=== PATIENT | female | born 1945 | race Caucasian/White ===

== ENCOUNTER 2025-05-11 10:43 | Outpatient (CLI) | payer MEDICARE, SELFPAY ==
--- NOTE | ~2025-05-11 | XR_ITS ---
Right Hand Technique: PA and lateral views were obtained. Clinical History: Rheumatoid arthritis Findings: No acute fracture or dislocation is seen. Osseous alignment is anatomic. There is moderate degenerative change of the DIP joints, worst at the fourth DIP joint. Soft tissues are unremarkable. Impression: Degenerative change of the DIP joints, worst at the fourth DIP joint. Reviewed, dictated and finalized at location . Impression: Degenerative change of the DIP joints, worst at the fourth DIP joint.
--- NOTE | ~2025-05-11 | XR_ITS ---
Left Hand Technique: PA and lateral views were obtained. Clinical History: Rheumatoid arthritis Findings: No acute fracture or dislocation is seen. Osseous alignment is anatomic. There is moderate degenerative change of the DIP joints, worst at the second and fourth DIP joints. Soft tissues are un remarkable. Impression: Degenerative change of the DIP joints, as detailed above. Reviewed, dictated and finalized at location . Impression: Degenerative change of the DIP joints, as detailed above.
--- NOTE | ~2025-05-11 | XR_ITS ---
Right foot Technique: AP and lateral views were obtained. Clinical History: Rheumatoid arthritis Findings: No acute fracture or dislocation is seen. There is moderate degenerative change at the firs t TMT joint. Soft tissues are unremarkable. Impression: Degenerative change at the first TMT joint. Reviewed, dictated and finalized at location . Impression: Degenerative change at the first TMT joint.
--- NOTE | ~2025-05-11 | XR_ITS ---
AP and oblique views of the SI joints CLINICAL HISTORY: Rheumatoid arthritis FINDINGS: There is mild degenerative change of the SI joints. No erosive change or sclerosis. Bilater al hip arthroplasties are present. Soft tissues are unremarkable. No fracture. IMPRESSION: Mild degenerative change of both SI joints. Bilateral hip arthroplasty. Reviewed, dictated and finalized at location .
--- NOTE | ~2025-05-11 | XR_ITS ---
Left foot Technique: AP and lateral views were obtained. Clinical History: Rheumatoid arthritis Findings: No acute fracture or dislocation is seen. Osseous alignment is anatomic. Joint spaces are p reserved without erosive or degenerative change. Soft tissues are unremarkable. Impression: Unremarkable left foot radiographs. Reviewed, dictated and finalized at location . Impression: Unremarkable left foot radiographs.
--- NOTE | ~2025-05-11 | XR_ITS ---
Cervical Spine: AP, lateral, open-mouth views Clinical History: Pain Findings: The normal lordotic curve is maintained. No fracture identified. There is 3 mm anterolisthe sis of C3 over C4. There is 4 mm anterolisthesis of C4-C5. There is advanced degenerative disc narrow ing at C5-C6 and C6-C7. There is severe facet arthropathy throughout the cervical spine.. Pre-vertebr al soft tissues are unremarkable. Impression: Severe degenerative spondylosis, as detailed above. Reviewed, dictated and finalized at location M. Impression: Severe degenerative spondylosis, as detailed above.
--- NOTE | ~2025-05-11 | XR_ITS ---
Lumbosacral Spine: AP and lateral views Clinical History: Pain Findings: There is dextroscoliosis. There is severe degenerative disc narrowing throughout the lumbar spine. There is severe facet arthropathy throughout the lumbar spine. No fracture or subluxation nasim dent. The sacroiliac joints are normally outlined. Impression: Severe degenerative spondylosis throughout the lumbar spine, with associated extra scoliosis. Reviewed, dictated and finalized at location M. Impression: Severe degenerative spondylosis throughout the lumbar spine, with associated ex tra scoliosis.
--- OUTSIDE RECORDS SUMMARY | 2025-05-11 11:03 | XMS_ITS | Data Portability ---
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 Name Role Phone [facility] OTHER Assessment Encounter Date Assessment Date Assessment LastModified by Organization Details LastModified Time 01/26/2025 01/26/2025 will see her back in one month, labs today to decide if needs electrolyte replacement weight is down, legs look improving [email or web address] Not available 01/26/2025 17:06:32 Plan of Treatment Reminders Order Date Submit Date Provider Last Modified By Organization Details Last Modified Time Details Appointments Any 15 2024 01:15P Fabiola Dow MD Not available Not available Not available Lab BMP, serum or plasma 2024 025 [employer] [facility], [address], [place], [address], 04/09/2025 18:41:46 BMP, serum or plasma 2024 025 [employer] [facility], [address] [place], [address], 03/12/2025 13:53:07 DAVID + rf (antinucl ear antibodie s + rheumatoi d factor), quantitat asia, serum 2024 025 [email or web address] [facility], [address], [place], [address], 03/05/2025 09:19:21 C-reactiv e protein, quantitat asia, serum or plasma 2024 025 [email or web address] [facility], [address], [place], [address], 03/05/2025 09:19:21 ESR (erythroc yte sedimenta tion rate), blood 2024 025 [email or web address], [address], [address], [place], [address], 03/05/2025 09:19:21 CBC w/ auto diff 2024 025 [facility], [address], [address], [place], [address], 03/05/2025 09:19:21 CMP, serum or plasma 2024 025 [facility], [address], [address], [place], [address], 03/05/2025 09:19:21 uric acid, serum or plasma 2024 025 [facility], [address], [address], [place], [address], 02/25/2025 14:27:24 BMP, serum or plasma 2024 025 [facility], [address], [address], [place], [address], 03/05/2025 09:19:21 CBC 2024 025 [employer] [facility], [address], [address], [place], [address], 02/24/2025 14:09:09 BMP, serum or plasma 2024 025 [employer] [facility], [address], [address], [place], [address], 01/27/2025 18:28:06 Referral cardiolog ist referral - Failed attempt with medicatio n. Please call patient to schedule an appointme nt. Thank you. 2024 025 FIDEL Amaya MD, 0 [facility], [address], [place], [address], 03/10/2025 11:37:22 Procedures None recorded. Surgeries None recorded. Imaging None recorded. Medication Orders hydralazi ne 25 mg tablet 2024 025 [facility]/Pharmacy #[id number], [address], [place], [address], 05/06/2025 14:52:42 hydralazi ne 25 mg tablet 2024 [id number], [address], [place], [address], 05/03/2025 09:49:06 diclofena c 3 % topical gel 2024 025 [email or web address] [facility]/Pharmacy #[id number], [address], [place], [address], 02/23/2025 14:58:22 furosemid e 20 mg tablet 2024 025 [email or web address] [facility]/Pharmacy #[id number], [address], [place], [address], 03/15/2025 10:49:46 cephalexi n 500 mg capsule 2024 025 [email or web address] [facility]/Pharmacy #[id number], [address], [place], [address], 02/25/2025 14:45:35 olmesarta n 40 mg tablet 2024 025 [email or web address] [facility]/Pharmacy #[id number], [address], [place], [address], 01/26/2025 17:15:25 Patient TargetsNo targets recorded. Patient Instructions Encounter Date Encounter Id Patient Instructions Last Modified By Organization Details Last Modified Time 02/23/2025 [id number] Discussed medication compliance with patient. Discussed watching salt intake and processed foods. Discussed elevation of legs and use of compression socks. Not available 02/23/2025 16:19:15 03/09/2025 [id number] BMP checked at visit. Avoid salty foods, frozen or packaged foods. Continue to elevate legs. Will notify of BNP results and send prescription after completed. [email or web address] Not available 03/09/2025 16:02:47 Reason for Referral [employer] W[employer] Referral for Ed brenda Failed attempt with medication. Please call patient to schedule an appointment. Thank you. Referring Physician: Peyton oLmeli, Internal Medicine, Encounter Date: 03/09/2025 Results Created Date Observation Date Name Description Value Unit Range Abnormal Flag Note LastModifiedBy Organization Detail LastModifiedTime Result Notes None recorded. 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 Not Available [employer] 3 16:40:44 Eruption 624927850 Completed 202102/25/2023 FEI Wilkins, [place] [employer] [facility] 3 14:10:13 Vitamin D deficienc y 66874448 Active 2021 Not Available [employer] 3 16:40:44 Neuropath y 362277179 Active 2021 Not Available [employer] 3 16:40:44 Osteoarth ritis 101035747 Active 2021 Not Available [employer] 3 16:40:44 Hyperlipi demia 91377691 Active 2021 Not Available [employer] 3 16:40:44 Essential hypertens ion 85396126 Active 2021 Not Available [employer] 3 16:40:44 Osteoporo sis 73697386 Active 2021 Not Available [facility] 3 16:40:44 Overactiv e urinary bladder 406282595 Active 2021 Not Available [facility] 3 16:40:44 Acute sinusitis 88326668 Completed 202207/12/2023 Carol Ann dasilva, RMA null, [place] [facility] 3 07:34:42 Allergic rhinitis 32519047 Active 2022 Carol Ann Huntley n, RMA null, [place] [facility] 5 07:43:30 Pain of bilateral hands 70067539268 634646 Completed 202401/19/2025 Carol Ann dasilva, RMA null, [place] [facility] 5 07:52:02 Pain of left hand 91893856064 9103 Completed 202401/19/2025 Carol Ann dasilva, RMA null, [place] [facility] [place] [facility] 5 07:52:01 Urinary incontine nce 005888489 Active 2024 Carol Ann dasilva, RMA null, [place] [facility] 5 07:51:57 Pain of multiple joints 68054182 Active 2024 SHRUTHI Florian [address], [address], [place], [address] , [facility] 5 13:59:19 Bilateral pain of joint of hands 77358862683 038677 Active 2024 SHRUTHI Florian [address], [address], [place], [address] , [facility] 5 15:10:07 Edema 375843165 Active 2024 PJ Florian-C [address], [address], [place], [address] , [facility] 5 15:05:14 Laborator y test result abnormal 399790586 Active 2024 Niyah Reeder LPN null, [place] [employer] [facility] [employer] 5 15:36:06 Arthritis 7591105 Active 2024 Gumaro Dow MD [address], [facility] [address], [place], [address] , [place] [employer] [facility] [employer] 5 14:49:03 Problem Notes None recorded. Procedures Surgical History Date Name Laterality Status Provider Name and Address Organization Details Recorded Time Medicare Wellness CPT Code, Initial completed Alice Cui RN [facility] [employer] 04/09/2024 14:31:07 Imaging Results None recorded. Procedure Notes None recorded. Medical Equipment None Reported. Medications Name Sig Start Date Stop Date Status Note LastModified by Organization Details LastModified Time amoxicill in 500 mg capsule TAKE 1 CAPSULE BY MOUTH THREE TIMES A DAY FOR 7 DAYS 12/10 completed Not Available Not Available Not Available furosemid e 40 mg tablet TAKE 1 TABLET BY MOUTH TWICE A DAY FOR 14 DAYS 03/15 completed Not Available Not Available Not Available atorvasta tin 40 mg tablet TAKE 1 TABLET BY MOUTH EVERY DAY active Not Available Not Available No t Available diclofena c 3 % topical gel APPLY TOPICALL Y TO PAINFUL HAND AND BACK AREAS 2 TIMES PER DAY active Not Available Not Available No t Available carvedilo l 25 mg tablet TAKE 1 TABLET BY MOUTH TWICE A DAY 2024 active Not Available Not Available Not Avai lable gabapenti n 600 mg tablet 06/20 completed Not Available Not Available Not Available atorvasta tin 10 mg tablet 06/20 completed Not Available Not Available Not Available atenolol 100 mg tablet Take 1 tablet every day by oral route. 02/23 completed severe swelling Not Available Not Available Not Available tolterodi ne ER 4 mg capsule,e xtended release 24 hr TAKE 1 CAPSULE BY MOUTH EVERY DAY 2024 active Not Available Not Available Not Avai lable meloxicam 15 mg tablet Take 1 tablet every day by oral route. 02/23 completed patient stopped and no longer wants to continue that Not Available Not Available Not Available alendrona te 70 mg tablet TAKE 1 TABLET BY MOUTH ONE TIME PER WEEK 2024 active Not Available Not Available Not Avai lable hydralazi ne 25 mg tablet Take 1 tablet twice a day by oral route. 2024 active Not Available Not Available Not Avai lable nifedipin e ER 30 mg tablet,ex tended release Take 1 tablet every day by oral route. 02/23 completed Not Available Not Available Not Available acetamino phen 300 mg-codein e 30 mg tablet TAKE 1 TABLET BY MOUTH 4 TIMES A DAY NEEDED FOR PAIN 06/20 completed Not Available Not Available Not Available leflunomi de 20 mg tablet TAKE 1 TABLET BY MOUTH EVERY DAY active Not Available Not Available No t Available triamcino lone acetonide 0.1 % topical cream APPLY TO AFFECTED AREA TWICE A DAY 06/20 completed Not Available Not Available Not Available meloxicam 7.5 mg tablet Take 1 tablet every day by oral route. 12/09 completed Not Available Not Available Not Available amitripty line 25 mg tablet 06/20 completed Not Available Not Available Not Available gabapenti n 800 mg tablet TAKE 1 TABLET BY MOUTH THREE TIMES A DAY active Not Available Not Available No t Available furosemid e 80 mg tablet TAKE 1 TABLET BY MOUTH EVERY DAY 2024 active Not Available Not Available Not Avai lable cephalexi n 500 mg capsule TAKE 1 CAPSULE BY MOUTH THREE TIMES A DAY FOR 10 DAYS 02/25 completed Not Available Not Available Not Available hydrocodo ne 7.5 mg-acetam inophen 750 mg tablet 06/20 completed Not Available Not Available Not Available hydroxyzi ne HCl 25 mg tablet 06/20 completed Not Available Not Available Not Available furosemid e 20 mg tablet TAKE 1 TABLET BY MOUTH EVERY DAY 03/15 completed Not Available Not Available Not Available lorazepam 1 mg tablet 06/20 completed Not Available Not Available Not Available hydroxych loroquine 200 mg tablet TAKE 2 TABLETS BY MOUTH EVERY DAY active Not Available Not Available No t Available hydroxyzi ne HCl 10 mg tablet TAKE 1 TABLET BY MOUTH THREE TIMES A DAY NEEDED 2024 active Not Available Not Available Not Avai lable fluticaso ne propionat e 50 mcg/actua tion nasal spray,caron pension SPRAY 1 SPRAY BY INTRANAS AL ROUTE EVERY DAY active Not Available Not Available No t Available atenolol 50 mg tablet TAKE 1 TABLET BY MOUTH EVERY DAY active disconti nued Not Available Not Available Not Available olmesarta n 40 mg tablet TAKE 1 TABLET BY MOUTH EVERY DAY active Not Available Not Available No t Available olmesarta n 40 mg-hydroc hlorothia zide 25 mg tablet TAKE 1 TABLET EVERY DAY BY ORAL ROUTE IN THE MORNING. 04/08 completed Not Available Not Available Not Available amlodipin e 5 mg-benaze pril 40 mg capsule 06/20 completed Not Available Not Available Not Available amlodipin e 10 mg-benaze pril 40 mg capsule TAKE 1 CAPSULE BY MOUTH EVERY DAY 07/29 completed Not Available Not Available Not Available Toviaz 8 mg tablet,ex tended release 06/20 completed Not Available Not Available Not Available Myrbetriq 25 mg tablet,ex tended release 06/20 completed Not Available Not Available Not Available Vitals Date Recorded Body height Body mass index (BMI) Body weight Body temperature Heart rate Oxygen saturation Oxygen saturation in Arterial blood by Pulse oximetry Systolic blood pressure Diastolic blood pressure Provider Name and Address Organization Details Last Updated DateTime 5 170.18 cm 26.5 kg/m2 77182.1 1 g 97.6 [degF] 72 /min 98 % 98 % 136 mm[Hg] 86 mm[Hg] Kennedi Cabezas [facility] [employer] [facility] [employer] [facility] 5 16:44:19 Date Recorded Body height Body mass index (BMI) Body weight Body temperature Oxygen saturation Oxygen saturation in Arterial blood by Pulse oximetry Heart rate Systolic blood pressure Diastolic blood pressure Provider Name and Address Organization Details Last Updated DateTime 5 170.18 cm 26.5 kg/m2 29919.1 1 g 97.5 [degF] 97 % 97 % 62 /min 140 mm[Hg] 80 mm[Hg] Kennedi tomas [employer] [facility] [employer] [facility] 5 14:21:34 Date Recorded Body height Body mass index (BMI) Body weight Body temperature Heart rate Oxygen saturation Oxygen saturation in Arterial blood by Pulse oximetry Systolic blood pressure Diastolic blood pressure Provider Name and Address Organization Details Last Updated DateTime 5 170.18 cm 27.4 kg/m2 48201.1 3 g 97 [degF] 72 /min 96 % 96 % 130 mm[Hg] 70 mm[Hg] Carol Ann winters [employer] [facility] 5 14:21:27 Date Recorded Body height Body mass index (BMI) Body weight Body temperature Heart rate Oxygen saturation Oxygen saturation in Arterial blood by Pulse oximetry Systolic blood pressure Diastolic blood pressure Provider Name and Address Organization Details Last Updated DateTime 5 170.18 cm 23.3 kg/m2 54825.2 6 g 97.5 [degF] 71 /min 97 % 97 % 174 mm[Hg] 80 mm[Hg] Carol Ann winters [employer] 5 14:22:30 Date Recorded Body height Body mass index (BMI) Body weight Body temperature Heart rate Oxygen saturation Oxygen saturation in Arterial blood by Pulse oximetry Systolic blood pressure Diastolic blood pressure Provider Name and Address Organization Details Last Updated DateTime 5 170.18 cm 24.9 kg/m2 51253.1 9 g 97 [degF] 65 /min 96 % 96 % 144 mm[Hg] 70 mm[Hg] Carol Ann winters [employer] [facility] [employer] 5 14:21:07 Social History Question Answer Notes LastModified by Organization Details LastModified Time Tobacco Smoking Status Former Smoker Not Available [facility] 01/09/2023 13:49:43 Do You Have An Advance Directive? No [id number] Information not available 01/09/2023 Do You Wear A Helmet When Biking? No MIGRATION.[id number] Information not available 01/09/2023 Are You Blind Or Do You Have Difficulty Seeing? Yes Wears Glasses [id number].[id number] Information not available 01/09/2023 What Is Your Level Of Caffeine Consumption? Moderate [id number].[id number] Information not available 01/09/2023 In The 14 Days Before Symptom Onset, Have You Had Close Contact With A Laboratory-cox bransoni rmed COVID-19 While That Case Was Ill? No MIGRATION.0301 [id number] Information not available 01/09/2023 In The 14 Days Before Symptom Onset, Have You Had Close Contact With A Person Who Is Under Investigation For COVID-19 While That Person Was Ill? No MIGRATION.0301 [id number] Information not available 01/09/2023 Are You Deaf Or Do You Have Serious Difficulty Hearing? No MIGRATION.0301 [id number] Information not available 01/09/2023 What Type Of Diet Are You Following? REGULAR MIGRATION.0301 [id number] Information not available 01/09/2023 What Is The Highest Grade Or Level Of School You Have Completed Or The Highest Degree You Have Received? [id number] MIGRATION.030 [id number] Information not available 01/09/2023 Have There Been Any Changes To Your Family Or Social Situation? No MIGRATION.030 490873 Information not available 01/09/2023 What Is The Fluoride Status Of Your Home? Unknown [email or web address] Information not available 04/09/2024 When Did You Quit Smoking? 16+yearssincelastc igarette 1/2 PPD Quit In 2004 Information not available 05/06/2025 Are There Any Guns Present In Your Home? No MIGRATION.0301 [id number] Information not available 01/09/2023 Do You Use Insect Repellent Routinely? No MIGRATION.0301 [id number] Information not available 01/09/2023 Where Do You Live? SingleLevelHouse [email or web address] Information not available 04/09/2024 Are You Able To Care For Yourself? Yes [email or web address] Information not available 04/09/2024 Are You Blind Or Do Yo Have Difficulty Seeing? No Information not available 04/09/2024 Are You Deaf Or Do You Have Serious Difficulty Hearing? No [email or web address] Information not available 04/09/2024 Live Alone Of With Others? Alone [email or web address] Information not available 04/09/2024 What Was The Date Of Your Most Recent Tobacco Screening? 05/06/2025 Information not available 05/06/2025 Do You Have Any Pets? Yes [email or web address] Information not available 04/09/2024 What Is Your Relationship Status? MIGRATION.0301 [id number] Information not available 01/09/2023 Do You Use Your Seat Belt Or Car Seat Routinely? Yes MIGRATION.0301 [id number] Information not available 01/09/2023 Do You Have Smoke And Carbon Monoxide Detectors In Your Home? Yes MIGRATION.0301 754214 Information not available 01/09/2023 Are You Passively Exposed To Smoke? No MIGRATION.0301 717475 Information not available 01/09/2023 Are There Any Smokers In Your House? No MIGRATION.0301 175822 Information not available 01/09/2023 Do You Use Sunscreen Routinely? No MIGRATION.0301 593579 Information not available 01/09/2023 Has Tobacco Cessation Counseling Been Provided? No MIGRATION.0301 [id number] Information not available 01/09/2023 Have You Recently Traveled Abroad? No MIGRATION.0301 751739 Information not available 01/09/2023 Do You Have Difficulty Walking Or Climbing Stairs? No MIGRATION.0301 863380 Information not available 01/09/2023 Do You Have Any Dietary Restrictions? No MIGRATION.0301 540719 Information not available 01/09/2023 Sex: Unknown Functional Status Question Answer Note LastModified by [employer] ion Details LastModified Time Do you use any illicit or recreational drugs? No MIGRATION.[id number] 026 Information not available 01/09/2023 Do you or have you ever used any other forms of tobacco or nicotine? No MIGRATION.6299874 026 Information not available 01/09/2023 What is your level of alcohol consumption? None MIGRATION.8976683 026 Information not available 01/09/2023 Do you have transportation difficulties? No MIGRATION.5778351 026 Information not available 01/09/2023 Are you able to walk? YESWOREST MIGRATION.9949256 026 Information not available 01/09/2023 Do you have difficulty doing errands alone? No MIGRATION.5936357 026 Information not available 01/09/2023 Are you able to care for yourself? Yes MIGRATION.6281518 026 Information not available 01/09/2023 Do you have difficulty dressing or bathing? No MIGRATION.1322176 026 Information not available 01/09/2023 What is your exercise level? None MIGRATION.3801339 026 Information not available 01/09/2023 Mental Status Question Answer Note LastModified by [employer] Details LastModified Time Do you feel stressed (tense, restless, nervous, or anxious, or unable to sleep at night)? [id number] MIGRATION.45065293 Information not available 01/09/2023 Do you have difficulty concentrating, remembering or making decisions? Yes MIGRATION.[id number] Information not available 01/09/2023 Family History Nothing Reported. Medical History No medical history recorded. Gynecological HistoryNo gynecological history recorded. Obstetrics History GPAL:G 0 P 0 0 0 0 Immunizations Vaccine Type Date Status Note Provider Nam e and Address Organization Details Recorded Time Influenza, high-dose, quadrivalent, PF 08/19/2023 completed Gumaro Dow MD [address], [address], [place], [address], [employer] 08/19/2023 15:01:24 Influenza, high-dose, trivalent, PF 08/10/2024 completed Gumaro Dow MD [address], [address], [place], [address], [employer] 08/10/2024 16:51:14 Past Encounters Encounter ID Performer Location Encounter Start Date Encounter Closed Date Diagnosis/Indication Diagnosis SNOMED-CT Code Diagnosis ICD10 Code Diagnosis Note [id number] Gumaro Dow MD [facility] [place] [place] Internal [address] [address] 06/20/2022 00:00:00 06/20/2022 14:40:12 [id number] Gumaro Dow MD [facility] [place] [place] Internal [address] [address] 10/22/2022 00:00:00 10/22/2022 14:24:52 [id number] Gumaro Dow MD [facility] [place] [place] Internal Med [id number] [place] [address] 02/25/2023 14:00:35 02/25/2023 14:21:14 Essential hypertension 46843231 I10 Under control Hyperlipidemia 32337778 E78.5 Labs good Overactive urinary bladder 915346806 N32.81 Meds help Neuropathy 543597028 G62 .9 Meds help Edema of l ower extremity 697797898 R60.0 Getting worse, could be amlodipine related, getting better Osteoarthritis 951712746 M19.90 OTC Osteoporosis 77512853 M8 1.0 On meds Vitamin D deficiency 347 74257 E55.9 on otc Adult heal th examination 494665133 Z00.00 colonoscop y- never, gets cologuard onlyMammo- 2Dex a-2C OVID-2 vaccines, 2 boostersFl [id number]- in the cdfcURX02- in the past [id number] Gumaro Dow MD [facility] [place] [place] Internal Med [address] [facility] [place] [address] 06/27/2023 14:03:16 06/27/2023 14:37:06 Essential hypertension 84684897 I10 change meds Hyperlipidemia 21014093 E78.5 Labs good Overactive urinary bladder 037408845 N32.81 Meds help Neuropathy 989441694 G62 .9 Meds help Edema of l ower extremity 463547341 R60.0 Getting worse, could be amlodipine related, getting better Osteoarthritis 876654387 M19.90 OTC Osteoporosis 69045170 M8 1.0 On meds Vitamin D deficiency 347 79720 E55.9 on otc Adult heal th examination 700595011 Z00.00 colonoscop y- never, gets cologuard onlyMammo- 2Dex a-2C OVID-2 vaccines, 2 boostersFl u-4196I32- in the frdqOUH27- in the past Screening mammography 24 189683 Z12.31 [id number] Gumaro Dow MD [facility] [place] [place] Internal Med [address] [facility] [place] [address] 07/29/2023 14:03:05 07/29/2023 14:27:42 Essential hypertension 52895284 I10 change med dose Edema of l ower extremity 376276250 R60.0 better after stoping amlodipine [id number] Gumaro Dow MD [facility] [place] [place] Internal Med [facility] [address] [facility] [place] [address] 08/19/2023 14:03:18 08/19/2023 15:09:03 Administration of influenza vaccine 99075231 Z23 Essential hypertension 37680267 I10 nifedipine 10 mg po x , bp came down to 104/56, looks like she is responding a lot better to calcium channel blockers, will start low dose nifedipine . [id number] Gumaro Dow MD [facility] [place] [place] Internal Med [address] [place] [address] 09/09/2023 14:28:19 09/09/2023 15:26:14 Essential hypertension 16989337 I10 UNDER CONTROL [id number] Gumaro Dow MD [facility] Internal Med [address] [facility] [place] [address] 12/10/2023 14:15:59 12/10/2023 14:56:09 Essential hypertension 58721061 I10 UNDER CONTROL Hyperlipidemia 94909921 E78.5 Labs needed Overactive urinary bladder 172439627 N32.81 Meds help Neuropathy 626975947 G62 .9 Meds help Edema of l ower extremity 032241681 R60.0 better after stoping amlodipine Osteoarthritis 651810407 M19.90 OTC Osteoporosis 34413864 M8 1.0 On meds Vitamin D deficiency 347 01182 E55.9 on otc Adult heal th examination [id number] Z00.00 colonoscop y- never, gets cologuard onlyMammo- 07/17/2023 Dexa-06/30 22COVID-2 vaccines, 2 boostersFl u-08/19/20 13M69-ke the woruDUV27- in the past Allergic rhinitis 187338 04 J30.9 advised to take hydroxizin e only as needed , will be filling 90 pills for 3 months, feeling tired [id number] Gumaro Dow MD [facility] [place] [place] Internal Med [address] [facility] [place] [address] 04/09/2024 14:01:56 04/09/2024 14:38:08 Essential hypertension 24949380 I10 under control Hyperlipidemia 94952149 E78.5 under control Overactive urinary bladder 454200497 N32.81 Meds help Neuropathy 346507482 G62 .9 Meds help Edema of l ower extremity 141829208 R60.0 better after stoping amlodipine Osteoarthritis 056715313 M19.90 OTC Osteoporosis 20044776 M8 1.0 On meds Vitamin D deficiency 347 98276 E55.9 on otc Adult heal th examination 718426903 Z00.00 Colonoscop y- never, gets cologuard onlyMammo- 07/17/2023 Dexa-06/30 22COVID-2 vaccines, 2 boostersFl u-08/19/20 40E62-pw the yjzzPQI16- in the past Allergic rhinitis 202604 04 J30.9 advised to take hydroxizin e only as needed , will be filling 90 pills for 3 months, Screening for disorder 776468795 Z13.9 [id number] Gumaro Dow MD [facility] [place] [place] Internal Med [facility] [address] [facility] [place] [address] 08/10/2024 15:10:53 08/10/2024 15:45:37 Essential hypertension 84675543 I10 was under control, home numbers are good, will bring her machine in aweek to get bp check Hyperlipidemia 66449234 E78.5 under control Overactive urinary bladder 910044756 N32.81 Meds help Neuropathy 826024083 G62 .9 Meds help Edema of l ower extremity 372283866 R60.0 getting better after stoping amlodipine Osteoarthritis 609642254 M19.90 OTC Osteoporosis 38311599 M8 1.0 On meds Vitamin D deficiency 347 62204 E55.9 on otc Adult heal th examination 765594876 Z00.00 Colonoscop y- never, gets cologuard onlyMammo- 07/17/2023 Dexa-06/30 22COVID-2 vaccines, 2 boostersFl u-08/19/20 97P22-pa the tubwSSV42- in the past Allergic rhinitis 821215 04 J30.9 advised to take hydroxyzin e only as needed , will be filling 90 pills for 3 months, Screening mammography 24 141971 Z12.31 Postmenopausal state 764 24291 Z78.0 Administra tion of influenza vaccine 40481107 Z23 [id number] Gumaro Dow MD [facility] [place] [place] Internal Med [address] [facility] [place] [address] 12/03/2024 11:02:32 12/03/2024 11:36:18 Essential hypertension 10989065 I10 home numbers are good, Hyperlipidemia 56978015 E78.5 under control Overactive urinary bladder 177661308 N32.81 Meds help Neuropathy 837712695 G62 .9 Meds help Edema of l ower extremity 555019498 R60.0 getting worse, avoid lasix, try compressio ns Osteoarthritis 415011629 M19.90 hands getting worse Osteoporosis 84571823 M8 1.0 On meds Vitamin D deficiency 347 50125 E55.9 on otc Adult heal th examination 101824336 Z00.00 Colonoscop y- never, gets cologuard onlyMammo- 07/17/2023 Dexa-06/30 22COVID-2 vaccines, 2 boostersFl u-08/19/204P13 -in the ugkeZBY40- in the past Allergic rhinitis 092377 04 J30.9 advised to take hydroxyzin e only as needed , will be filling 90 pills for 3 months, [id number] Gumaro Dow MD [facility] [place] [place] Internal Med [facility] [address] [facility] [place] [address] 01/11/2025 17:11:50 01/12/2025 14:02:49 Edema of lower extremity 227260979 R60.0 now with mild cellulitis needs lymphadema treatment and antibxshe is reluctant for PT for lymphadema treatmentw ill use lasix 20mg every morning and she is taking her losartan without the hctz, she says she has regular losartan without the hctzlabs next week and recheck of legs Pain of bi lateral hands [id number] 4795850 M79.641 M79.642 meloxicam in not helping, because of swelling i will ask her to try topical diclofenac and hopefully insurance will cover the cost Urinary incontinence 165 919804 R32 [id number] Gumaro Dow MD [facility] [place] [place] Internal Med [address] [facility] [place] [address] 01/26/2025 16:16:04 01/26/2025 17:38:18 Essential hypertension 87011203 I10 continue the plain olmesartan and will add lasix seperately no more hydrochlor othiazide Edema of l ower extremity 676347819 R60.0 improvingw ill see in one month, will plan to see me again and [facility] todayconti nue the lasix and [facility] round for further improvemen t Osteoarthritis 680017647 M19.90 [id number] Gumaro Dow MD [facility] [place] [place] Internal Med [address] [facility] [place] [address] 02/23/2025 14:07:54 02/23/2025 15:57:37 Bilateral pain of joint of hands 4920612459 [id number] M25.476 [id number] Gumaro Dow MD [facility] Internal Med [facility] [address] [facility] [place] [address] 03/09/2025 14:13:03 03/09/2025 16:14:28 Edema 728013607 R60.9 [id number] Gumaro Dow MD [facility] [place] [place] Internal Med [address] [facility] [place] [address] 04/08/2025 14:14:25 04/08/2025 15:42:51 Essential hypertension 61143846 I10 Hyperlipidemia 96983955 E78.5 under control Overactive urinary bladder 480996762 N32.81 Meds help Neuropathy 773041974 G62 .9 Meds help Edema of l ower extremity 142471896 R60.0 much better Osteoporosis 38986317 M8 1.0 On meds Vitamin D deficiency 347 12941 E55.9 on otc Adult heal th examination 143351891 Z00.00 Colonoscop y- never, gets cologuard onlyMammo- 07/17/2023 Dexa-06/30 22COVID-2 vaccines, 2 boostersFl u-08/19/204P13 -in the myksCSK67- in the past Allergic rhinitis 350250 04 J30.9 advised to take hydroxyzin e only as needed , will be filling 90 pills for 3 months, Arthritis 0374443 M19.90 rh was positive, seeing rheumatolo gist [id number] Gumaro Dow MD [facility] Internal Med [address] [place] [address] 05/06/2025 14:06:52 05/06/2025 15:19:39 Essential hypertension 07453071 I10 getting better, lose weight Health Concerns Section Related Observation LastModified by Organization Detai ls LastModified Time None Recorded Concern Status LastModified by Organization Details LastModified Time None Recorded Advance Directives Directive N: Payers Insurance Date Sequence Insurance Name Policy Number Policy Serna Covered Member ID Serna Member ID Guarantor Name 08/10/2024 1 [employer] (MEDICARE REPLACEMENT/A DVANTAGE - PPO) [id number] Adenike Cloud [id number] Adenike Cloud 05/03/2025 1 [facility] (MEDICARE REPLACEMENT/A DVANTAGE - PPO) [id number] Adenike Cloud [id number] Adenike Cloud Notes Date Note Type Note Provider Name and Address Organization Details Recorded Time 5 text/html Pt is here for swelling in her legs, bilateral. The abx has helped the leakage in right lower calf but not the swelling. Her hands have started to relive pain that she was experiencing in November but still numb from time to time. Robyn Topete NP [address], [place], [address], [employer] 01/26/2025 17:27:11 5 text/html Patient is 79y/o female in for follow up on hand pain and leg edema. Patient stats the meloxicam and diclofenac cream have not been working. Patient states that the swelling is worse. Patient states that she has been taking her medications but furosemide daily unless she has to leave. Patient denies shortness of breath, wheezing, or chest pain. swelling in legs and both hands- Stopped atenolol, started Carvedilol 25mg BIDIncreased 40mg BID for two weeks ONLY follow up on 03/09 SHRUTHI Florian [address], [place], [address], [employer] 02/23/2025 16:20:45 5 text/html Patient is 79y/o female who is here for follow up on leg edema. Patient reports sometimes taking 20mg instead of 40mg twice daily. Patient reports she just does not want to keep peeing constantly. Patient reports still having swelling and tightness in the leg. Patient states that her left knee has improved. Patient also reports not elevating her legs. increased Lasix for leg swelling- two week follow up, Patient denies weeping at this time. Patient denies any wounds or recent injuries. Not compliant with medications as advised SHRUTHI Florian [address], [place], [address], [employer] 03/09/2025 16:03:13 5 text/html Pt is here today for her routine check up, complaint to meds.PT IS NOT FASTING ([facility]) Allergic Rhinitis/ urticariaMed- Hydroxyzine 10 mg- for itching, Flonase HTN- B/p is highoff Nifedipine and AtenololMed- Tulloacote02sv daily, Carvedilol 25mg BID Hyperlipidemia- labs good 01/04med- Atorvastatin 40 mg Neuropathy- Tingling in the feet, meds helpMed-Gabapentin 800mg tid Hand pain/knees pain- Has been seeing Bond Clerk (Dr. Tomas Downs) and has prescribed meds to take and if it doesnt help its probably not RAMeds- Hydroxychloroquine 200mg 2 tabs daily, Leflunomide 20mg dailyUrinary incontinence- meds help, no side effectsMed-Tolterodine 4mg Osteoarthritis- s/p both TKA, Dr John Osteoporosis-- started on meds in 07/02, no side effectsMeds- Alendronate 70mg once a week Edema-Bilateral lower legs, Has lostHas lost 25lbs, getting betterMeds- Furosemide Post- herpetic neuralgia-Hepes zoster in 2015, has numbness on the right side of the face since then Ex-smoker quit in 2004 , lives alone, son lives in [place] Gumaro Dow MD [address], [place], [address], [employer] 04/08/2025 14:51:26 5 text/html Pt is here today for a 1 month follow up on her blood pressureLast month it was 174/80 Hydralazine 25mg was added and today her b/p was 144/70.no headache or cpHas bilateral swelling better.C/o RA in both hands Gumaro Dow MD [address] [facility] [facility] [address], [place], [address], [place] [facility] 05/06/2025 14:54:06 OBGyn Episode No OBEpisode recorded.
[2025-05-11 12:03] LABS: Hematocrit 31.6 % (37.0-47.0); Hemoglobin 9.8 g/dL (12.0-15.0); Immature Granulocyte Percent A 0.4 % (0-0.5); Lymphocytes Absolute Auto 0.63 K/mm3 (0.9-3.2); Mean Corpuscular HGB Conc 31.0 g/dl (32-36); Mean Corpuscular Hemoglobin 29.9 pg (26-34); Mean Corpuscular Volume 96.3 fl (80-100); Nucleated Red Blood Cells Absolute Auto 0.000 K/mm3 (0.0-0.012); Nucleated Red Blood Cells Perc 0.0 % (0.0-0.2); Platelet Count Result 198 k/mm3 (150-375); Red Blood Count 3.28 M/mm3 (4.2-5.4); White Blood Count 5.7 K/mm3 (4.5-10.0)
[2025-05-11 12:19] LABS: Alanine Aminotransferase 15 U/L (6-35); Albumin Level 3.8 g/dL (3.5-5.1); Alkaline Phosphatase 79 U/L (38-126); Anion Gap 8 mmol/L (4-12); Aspartate Amino Transferase 26 U/L (14-36); Bilirubin,Total 0.6 mg/dL (0.2-1.3); Blood Urea Nitrogen 15 mg/dL (7-17); Calcium 9.2 mg/dL (8.4-10.2); Carbon Dioxide 27 mmol/L (22-30); Chloride 99 mmol/L (98-107); Estimated Glomerular Filt Rate 38; Glucose 83 mg/dL (65-110); Potassium 3.9 mmol/L (3.4-5.0); Sodium 134 mmol/L (137-145); Total Protein 6.9 g/dL (6.3-8.2)
[2025-05-11 12:25] LABS: Immunoglobulin A 291 mg/dL (70-400); Immunoglobulin G 1129 mg/dL (700-1600)
[2025-05-11 12:58] LABS: Add Urine Microscopic? YES; Appearance Urine Clear (Clear); Glucose Urine UA Negative (Negative); Leukocyte Esterase Ur Trace LEU/UL (Negative); Need Manual Microscopic Reviewed; Nitrate Urine Negative (Negative); Non Pathogenic Casts 0-2; Specific Grav Ur 1.008 (1.001-1.035)
[2025-05-11 13:03] LABS: Hepatitis B Surface Antigen Negative (Negative)
[2025-05-11 13:09] LABS: HAV RESULT Negative (Negative); Hepatitis B Core IgM Result Negative (Negative)
[2025-05-11 13:21] LABS: Hepatitis B Surface Anti Res Negative
[2025-05-11 14:57] LABS: CRP 1.1 mg/dL (<1.0)
[2025-05-13 13:08] LABS: Cyclic Citrullinated Peptide. <16 UNITS
[2025-05-13 13:53] LABS: NIL 0.02 IU/mL; Quantiferon TB Plus, 1T NEGATIVE (NEGATIVE); TB1-NIL 0.01 IU/mL; TB2-NIL 0.01 IU/mL
== END 2025-05-11 10:44 | disposition home or self-care (01) ==
PROVIDERS: PCP Anesthesiology; Visit Provider Internal Medicine
DX: M06.9 Rheumatoid arthritis, unspecified (principal); Z79.899 Other long term (current) drug therapy; M19.042 Primary osteoarthritis, left hand; M47.896 Other spondylosis, lumbar region; M19.041 Primary osteoarthritis, right hand; M47.892 Other spondylosis, cervical region; M19.071 Primary osteoarthritis, right ankle and foot
CPT/HCPCS: 36415; 72040; 72100; 72202; 73120; 73620; 80053; 80074; 81001; 82248; 82784; 85025; 85652; 86140; 86200; 86480; 86706

== ENCOUNTER 2025-05-26 11:24 | Outpatient (CLI) | payer MEDICARE, SELFPAY ==
[2025-05-26 12:16] LABS: Hematocrit 33.1 % (37.0-47.0); Hemoglobin 10.2 g/dL (12.0-15.0); Immature Granulocyte Percent A 0.6 % (0-0.5); Lymphocytes Absolute Auto 0.91 K/mm3 (0.9-3.2); Mean Corpuscular HGB Conc 30.8 g/dl (32-36); Mean Corpuscular Hemoglobin 30.2 pg (26-34); Mean Corpuscular Volume 97.9 fl (80-100); Nucleated Red Blood Cells Absolute Auto 0.000 K/mm3 (0.0-0.012); Nucleated Red Blood Cells Perc 0.0 % (0.0-0.2); Platelet Count Result 221 k/mm3 (150-375); Red Blood Count 3.38 M/mm3 (4.2-5.4); White Blood Count 7.0 K/mm3 (4.5-10.0)
== END 2025-05-26 11:25 | disposition home or self-care (01) ==
LOC: ANHLAB 11:26
PROVIDERS: PCP Anesthesiology; Visit Provider Internal Medicine
DX: M05.741 Rheumatoid arthritis with rheumatoid factor of right hand without organ or systems involvement (principal); Z79.899 Other long term (current) drug therapy
CPT/HCPCS: 36415; 85025; 85652

== ENCOUNTER 2025-08-03 11:02 | Outpatient (CLI) | payer MEDICARE, SELFPAY ==
[2025-08-03 11:45] LABS: Hematocrit 31.0 % (37.0-47.0); Hemoglobin 9.5 g/dL (12.0-15.0); Immature Granulocyte Percent A 0.0 % (0-0.5); Lymphocytes Absolute Auto 1.09 K/mm3 (0.9-3.2); Mean Corpuscular HGB Conc 30.6 g/dl (32-36); Mean Corpuscular Hemoglobin 31.4 pg (26-34); Mean Corpuscular Volume 102.3 fl (80-100); Nucleated Red Blood Cells Absolute Auto 0.000 K/mm3 (0.0-0.012); Nucleated Red Blood Cells Perc 0.0 % (0.0-0.2); Platelet Count Result 184 k/mm3 (150-375); Red Blood Count 3.03 M/mm3 (4.2-5.4); White Blood Count 3.1 K/mm3 (4.5-10.0)
[2025-08-03 11:56] LABS: Add Urine Microscopic? YES; Appearance Urine Clear (Clear); Glucose Urine UA Negative (Negative); Leukocyte Esterase Ur Trace LEU/UL (Negative); Nitrate Urine Negative (Negative); Non Pathogenic Casts 0-2; Specific Grav Ur 1.006 (1.001-1.035)
[2025-08-03 12:14] LABS: Albumin Level 3.9 g/dL (3.5-5.1); Anion Gap 5 mmol/L (4-12); Blood Urea Nitrogen 13 mg/dL (7-17); Calcium 8.5 mg/dL (8.4-10.2); Carbon Dioxide 25 mmol/L (22-30); Chloride 104 mmol/L (98-107); Estimated Glomerular Filt Rate 58; Glucose 79 mg/dL (65-110); Potassium 4.3 mmol/L (3.4-5.0); Sodium 134 mmol/L (137-145)
[2025-08-03 12:21] LABS: CRP < 0.5 mg/dL (<1.0)
[2025-08-06 09:09] LABS: Estrogens, Total 55 pg/mL (40-244)
== END 2025-08-03 11:03 | disposition home or self-care (01) ==
LOC: ANHLAB 11:05
PROVIDERS: PCP Anesthesiology; Visit Provider Internal Medicine
DX: M05.741 Rheumatoid arthritis with rheumatoid factor of right hand without organ or systems involvement (principal)
CPT/HCPCS: 36415; 80069; 81001; 82672; 85025; 86140

== ENCOUNTER 2025-09-13 11:06 | Outpatient (CLI) | payer MEDICARE, SELFPAY ==
[2025-09-13 11:44] LABS: Hematocrit 28.9 % (37.0-47.0); Hemoglobin 9.1 g/dL (12.0-15.0); Immature Granulocyte Percent A 0.5 % (0-0.5); Lymphocytes Absolute Auto 1.21 K/mm3 (0.9-3.2); Mean Corpuscular HGB Conc 31.5 g/dl (32-36); Mean Corpuscular Hemoglobin 33.2 pg (26-34); Mean Corpuscular Volume 105.5 fl (80-100); Nucleated Red Blood Cells Absolute Auto 0.000 K/mm3 (0.0-0.012); Nucleated Red Blood Cells Perc 0.0 % (0.0-0.2); Platelet Count Result 231 k/mm3 (150-375); Red Blood Count 2.74 M/mm3 (4.2-5.4); White Blood Count 4.3 K/mm3 (4.5-10.0)
[2025-09-13 12:05] LABS: Alanine Aminotransferase 46 U/L (6-35); Albumin Level 3.9 g/dL (3.5-5.1); Alkaline Phosphatase 39 U/L (38-126); Anion Gap 5 mmol/L (4-12); Aspartate Amino Transferase 49 U/L (14-36); Bilirubin,Total 0.7 mg/dL (0.2-1.3); Blood Urea Nitrogen 11 mg/dL (7-17); CRP < 0.5 mg/dL (<1.0); Calcium 8.5 mg/dL (8.4-10.2); Carbon Dioxide 26 mmol/L (22-30); Chloride 104 mmol/L (98-107); Estimated Glomerular Filt Rate 53; Glucose 76 mg/dL (65-110); Potassium 4.1 mmol/L (3.4-5.0); Sodium 135 mmol/L (137-145); Total Protein 6.4 g/dL (6.3-8.2)
[2025-09-13 12:25] LABS: Hypochromasia Occasional; Macrocytosis Occasional (NORMAL); Schistocytes None Seen
[2025-09-13 12:46] LABS: Add Urine Microscopic? YES; Appearance Urine Cloudy (Clear); Glucose Urine UA Negative (Negative); Leukocyte Esterase Ur 1+ LEU/UL (Negative); Need Manual Microscopic Need Manual; Nitrate Urine Negative (Negative); Non Pathogenic Casts >20; Specific Grav Ur 1.016 (1.001-1.035)
== END 2025-09-13 11:07 | disposition home or self-care (01) ==
LOC: ANHLAB 11:10
PROVIDERS: PCP Anesthesiology; Visit Provider Internal Medicine
DX: M05.741 Rheumatoid arthritis with rheumatoid factor of right hand without organ or systems involvement (principal); Z79.899 Other long term (current) drug therapy
CPT/HCPCS: 36415; 80053; 81001; 84100; 85025; 85652; 86140